=== PATIENT | female | born 2000 | race Caucasian/White ===

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

== ENCOUNTER 2020-01-02 19:16 | Emergency (ER) | payer SELFPAY ==
[~2020-01-02] VITALS: Ht 162.6 cm; Wt 72.7 kg
[~2020-01-02 19:16] MED LIST: KEFLEX500 MG PO; LAMISIL250 MG PO; MACROBID100 MG PO; PHENAZOPYRIDIN200 MG PO
[2020-01-02 19:20] VITALS: Ht 162.6 cm; Wt 72.7 kg
[2020-01-02 19:56] LABS: BILIRUBIN NEGATIVE (NEGATIVE); KETONE NEGATIVE (NEGATIVE); NITRITE NEGATIVE (NEGATIVE); UROBILINOGEN NORMAL mg/dL (< 2)
[2020-01-02 20:20] LABS: BASOPHILS 0.2 % (0-2); EOSINOPHILS 1.7 % (0-7); HEMOGLOBIN 14.3 g/dL (12-16); IMMATURE GRANULOCYTES 0.2 % (0-5); LYMPHOCYTES 16.7 % (15-50); MCH 30.1 pg (26.0-34.0); MCHC 33.3 g/dL (31.0-37.0); MCV 90.5 fL (80.0-100.0); MEAN PLATELET VOLUME 10.3 fL (7.4-10.4); MONOCYTES 7.8 % (2-11); NEUTROPHILS 73.4 % (40-80); PLATELET COUNT 302 10x3/uL (130-400); RBC 4.75 10x6/uL (4.00-5.40); RDW 13.3 % (11.5-14.5); WBC 8.7 10x3/uL (4.8-10.8)
[2020-01-02 20:30] LABS: CALC OSMOLALITY 272 mosm/kg (275-300); CALCIUM 9.2 mg/dL (8.5-10.1); CARBON DIOXIDE 28.3 mmol/L (21.0-32.0); CHLORIDE - SERUM 101 mmol/L (98-107); CREATININE - SERUM 0.8 mg/dL (0.6-1.3); GLUCOSE 93 mg/dL (74-106); POTASSIUM - SERUM 4.3 mmol/L (3.5-5.1); SODIUM 136 mmol/L (136-145); UREA NITROGEN 14 mg/dL (7-18); eGFR NON AFRICAN AMERICAN > 90 mL/min (90-120)
[2020-01-02 20:37] LABS: ALBUMIN 4.3 g/dL (3.4-5.0); ALKALINE PHOSPHATASE 62 U/L (30-120); ALT (SGPT) 8 U/L (10-68); AMYLASE - SERUM 54 U/L (25-115); BILIRUBIN - TOTAL 0.12 mg/dL (0.2-1.3); LIPASE 88 U/L (73-393); PROTEIN - SERUM 7.8 g/dL (6.4-8.2)
[2020-01-02 22:24] LABS: HCG SERUM NEGATIVE (NEGATIVE)
[2020-01-02] MEDS ORDERED: AUGMENTIN 875-11 TAB PO (22:31)
[2020-01-02] MEDS ORDERED: FLUTICASONE PRO16 GM NASAL (22:31)
[2020-01-02 22:32] VITALS: BP 140/81
== END 2020-01-02 22:32 | disposition home or self-care (01) ==
LOC: D.ER 19:16
PROVIDERS: Family Medicine
DX: J32.9 Chronic sinusitis, unspecified (principal); R42 Dizziness and giddiness; J45.909 Unspecified asthma, uncomplicated